=== PATIENT | female | born 1965 | race American Indian/Alaskan Native ===

== ENCOUNTER 2017-02-28 19:41 | Emergency (ER) | payer OTHER ==
[2017-02-28] MEDS ORDERED: MOTRIN PO ONE ×2 (22:57)
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
[2017-03-01 01:26] VITALS: BP 157/99
== END 2017-03-01 01:27 | disposition home or self-care (01) ==
LOC: ED 19:41
DX: M54.2 Cervicalgia (principal); M54.5 Low back pain; I10 Essential (primary) hypertension; V49.49XA Driver injured in collision with other motor vehicles in traffic accident, initial encounter; Y93.89 Activity, other specified; Y99.8 Other external cause status; Y92.488 Other paved roadways as the place of occurrence of the external cause
CPT/HCPCS: 72040; 72100; 72125